=== PATIENT | male | born 1995 | race Caucasian/White ===

== ENCOUNTER 2019-09-07 10:17 | Emergency (ER) | payer OTHER ==
[~2019-09-07] VITALS: Ht 182.8 cm; Wt 79.0 kg
--- NOTE | 2019-09-07 11:28 | Diagnostic Imaging Report ---
HISTORY: Trauma to the right hand. TECHNIQUE: Three views of the right hand. COMPARISON: None. FINDINGS: There is a markedly comminuted fracture of the distal shaft, neck, and head of the right 3rd metacarpal which extends to the articular surface. There is mild volar and radial displacement of the distal fragments. There is surrounding soft tissue edema and soft tissue gas from laceration. No other fractures are seen. The alignment otherwise appears normal. IMPRESSION: Markedly comminuted, mildly displaced intra-articular fracture of the distal right 3rd metacarpal. Dictated by: Dictated on workstation # [id number]
[2019-09-07] MEDS ORDERED: RX-MUPIROCIN (BACTROBAN) 2% OINT 22 GM TUBE TOP STA (11:40)
[2019-09-07] MEDS ORDERED: KETOROLAC 60 MG/2 ML VIAL IM ONE (11:45)
[2019-09-07] MEDS ORDERED: ceFAZolin INJECTION 1,000 MG VIAL IM ONE (11:45)
[2019-09-07] MEDS ORDERED: HYDROcodone/APAP 5 MG/325 MG (LORTAB) TAB PO ONE (11:45)
[2019-09-07] MEDS ORDERED: CEPH-507 PO (11:47)
[2019-09-07] MEDS ORDERED: HYDR-83 PO (11:47)
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
[2019-09-07] MEDS ORDERED: WATER (STERILE) FOR INJECTION 10 ML ONE (11:58)
[2019-09-07 12:17] VITALS: BP 134/85
--- OUTSIDE RECORDS SUMMARY | 2019-09-07 12:19 | XMS REPORT | Continuity of Care Document ---
Author Organization Unknown Address Unknown Phone Unavailable Allergies There is no data. Medications There is no data. Problems Date Dx Coded Attending Type Code Diagnosis Diagnosed By 01/07/2018 JONATHAN Davies, JERRI Ibarra R53.83 OTHER FATIGUE 01/07/2018 JERRI CASTILLO M.D. Other Z11.3 ENCNTR SCREEN FOR INFECTIONS W SEXL MODE OF TRANSMISS Procedures There is no data. Results There is no data. Encounters ACCT No. Visit Date/Time Discharge Status Pt. Type Provider Facility Loc./Unit Complaint [id number] 01/07/2018 06:50:00 018 23:59:59 CLS Outpatient JONATHAN Davies, JERRI Del Rosario [facility]
== END 2019-09-07 12:17 | disposition home or self-care (01) ==
LOC: ER 10:20
DX: S62.302B Unspecified fracture of third metacarpal bone, right hand, initial encounter for open fracture (principal); W22.8XXA Striking against or struck by other objects, initial encounter; Y92.59 Other trade areas as the place of occurrence of the external cause; Y99.0 Civilian activity done for income or pay
CPT/HCPCS: 73130